=== PATIENT | male | born 1990 | race Caucasian/White ===

== ENCOUNTER 2017-01-06 19:44 | Emergency (ER) | payer SELFPAY ==
[2017-01-06 20:20] VITALS: PULSE 81; RESP 17; TEMP 97.9; O2SAT 97
--- NOTE | 2017-01-06 20:40 | ED PDOC ---
HPI: Dental Pain/Injury Time Seen by Provider: 01/06/17 20:26 Chief Complaint (Nursing): Dental Pain Chief Complaint (Provider): dental pain History Per: Patient History/Exam Limitations: no limitations Onset/Duration Of Symptoms: Days (x3 days) Current Symptoms Are (Timing): Still Present Additional Complaint(s): Mina Wharton is a 26 year old male with previous right-sided wisdom tooth extraction performed 3 weeks ago, [facility] of dental pain along his right jaw line associated with swelling ongoing for 3 days. Denies any fever, headaches, ear pain, nausea, vomiting, recent injury or trauma. Stated he took advil to relieve his symptoms around 12: 00 today. PMD: none provided Past Medical History Reviewed: Historical Data, Nursing Documentation, Vital Signs Vital Signs: Last Vital Signs Temp 97.9 F 01/06/17 20:18 Pulse 81 01/06/17 20:18 Resp 17 01/06/17 20:18 BP 156/102 H 01/06/17 20:18 Pulse Ox 97 01/06/17 20:18 - Medical History PMH: Anxiety, Bipolar Disorder Denies: Diabetes, Hepatitis, HIV, HTN, Chronic Kidney Disease, Seizures, Sexually Transmitted Disease - Surgical History Surgical History: No Surg Hx - Family History Family History: States: Unknown Family Hx - Social History Current smoker - smoking cessation education provided: No Alcohol: None Drugs: Denies - Home Medications Home Medications: Ambulatory Orders Medication Instructions Recorded Amoxicillin [Amoxil 500 mg Cap] 500 mg PO BID #13 cap 01/06/17 Benzocaine 20% [Orajel PM Maximum 1 - 2 gm MM DAILY #1 tube 01/06/17 Strength] Mag&Al/Simet/Diphen/Lido [First 30 ml MM DAILY #3 kit 01/06/17 Magic Mouthwash] - Allergies Allergies/Adverse Reactions: Allergies Allergy/AdvReac Type Severity Reaction Status Date / Time No Known Allergies Allergy Verified 01/06/17 20:20 Review of Systems ROS Statement: Except As Marked, All Systems Reviewed And Found Negative Constitutional: Negative for: Fever ENT: Positive for: Mouth Pain (right sided dental pain), Mouth Swelling (right sided). Negative for: Ear Pain Gastrointestinal: Negative for: Nausea, Vomiting Neurological: Negative for: Headache Physical Exam - Reviewed Nursing Documentation Reviewed: Yes Vital Signs Reviewed: Yes - Physical Exam Appears: Positive for: Well, Non-toxic, No Acute Distress Head Exam: Positive for: ATRAUMATIC, NORMAL INSPECTION, NORMOCEPHALIC Skin: Positive for: Normal Color, Warm, Dry ENT: Positive for: TM Is/Are (withing normal limits), Other (tenderness on right side of mouth. Canker sore most predominant on right posterior aspect of gum and inner buccal mucosa. Infection and dental decay are noted). Negative for: Tonsillar Swelling (tongue and uvula swelling) Neck: Positive for: Normal, Painless ROM, Supple Cardiovascular/Chest: Positive for: Regular Rate, Rhythm Respiratory: Positive for: Normal Breath Sounds. Negative for: Crackles, Rales , Rhonchi, Stridor Lymphatic: Positive for: Normal Exam. Negative for: Adenopathy Neurologic/Psych: Positive for: Alert, Oriented - ECG O2 Sat by Pulse Oximetry: 97 (RA) Pulse Ox Interpretation: Normal Medical Decision Making Medical Decision Making: Initial Impression: Canker sores; Tooth infection Initial Plan: * Amoxicillin 500 mg PO * Ultram 100 mg PO * Magic mouth wash Upon provider reevaluation patient is medically stable, and requires no further treatment in the ED at this time. Patient will be discharged home with Rx for Amoxicillin 500mg. Counseling was provided and all questions were answered regarding diagnosis and need for follow up with dentist. There is agreement to discharge plan. Return if symptoms persist or worsen. Clinical Impression: Canker sore; Tooth infection Scribe Attestation: Documented by Margi Stallworth, acting as a scribe for Imelda Jacobs PA-C. Provider Scribe Attestation: All medical record entries made by the Scribe were at my direction and personally dictated by me. I have reviewed the chart and agree that the record accurately reflects my personal performance of the history, physical exam, medical decision making, and the department course for this patient. I have also personally directed, reviewed, and agree with the discharge instructions and disposition. Disposition - Clinical Impression Clinical Impression: Dental caries, Canker sore - Patient ED Disposition Is Patient to be Admitted: No Doctor Will See Patient In The: Office Counseled Patient/Family Regarding: Diagnosis, Need For Followup, Rx Given - Disposition Disposition: Routine/Home Disposition Time: 20:48 Condition: STABLE Prescriptions: Amoxicillin [Amoxil 500 mg Cap] 500 mg PO BID #13 cap Benzocaine 20% [Orajel PM Maximum Strength] 1 - 2 gm MM DAILY #1 tube Mag&Al/Simet/Diphen/Lido [First Magic Mouthwash] 30 ml MM DAILY #3 kit Instructions: Dental Caries (ED), Canker Sores (ED) Forms: [facility] ED School/Work Excuse
[2017-01-06 21:29] VITALS: BP 142/86
== END 2017-01-06 21:04 | disposition home or self-care (01) ==
LOC: H.ER 19:44
DX: K12.0 Recurrent oral aphthae (principal); K04.7 Periapical abscess without sinus

== ENCOUNTER 2017-12-06 17:55 | Emergency (ER) | payer SELFPAY ==
[2017-12-06 18:19] VITALS: BP 144/80; PULSE 101; RESP 16; TEMP 98; O2SAT 96
[2017-12-06] MEDS ORDERED: Absorbable Gelatin Sponge Size 12-7 ONE (18:43)
--- NOTE | 2017-12-06 18:53 | ED PDOC ---
HPI: Skin/Bite Injury Time Seen by Provider: 12/06/17 18:13 Chief Complaint (Nursing): Upper Extremity Problem/Injury Chief Complaint (Provider): Right thumb, skin injury History Per: Patient History/Exam Limitations: no limitations Onset/Duration Of Symptoms: Mins Current Symptoms Are (Timing): Still Present Quality Of Symptoms: Painful Severity: Mild Pain Scale Rating Of: 2 Additional Complaint(s): 27 yo male with no medical problems presents with laceration of the left thumb. PT cut with knife at work. Pt reports tetanus UTD. Past Medical History Reviewed: Historical Data, Nursing Documentation, Vital Signs Vital Signs: Last Vital Signs Temp 98.0 F 12/06/17 18:15 Pulse 101 H 12/06/17 18:15 Resp 16 12/06/17 18:15 BP 144/80 12/06/17 18:15 Pulse Ox 96 12/06/17 18:15 - Medical History PMH: Anxiety, Bipolar Disorder Denies: Diabetes, Hepatitis, HIV, HTN, Chronic Kidney Disease, Seizures, Sexually Transmitted Disease - Surgical History Surgical History: No Surg Hx - Family History Family History: States: Unknown Family Hx - Living Arrangements Living Arrangements: With Family - Social History Current smoker - smoking cessation education provided: No - Home Medications Home Medications: Ambulatory Orders Medication Instructions Recorded Amoxicillin [Amoxil 500 mg Cap] 500 mg PO BID #13 cap 01/06/17 Benzocaine 20% [Orajel PM Maximum 1 - 2 gm MM DAILY #1 tube 01/06/17 Strength] Mag&Al/Simet/Diphen/Lido [First 30 ml MM DAILY #3 kit 01/06/17 Magic Mouthwash] - Allergies Allergies/Adverse Reactions: Allergies Allergy/AdvReac Type Severity Reaction Status Date / Time No Known Allergies Allergy Verified 01/06/17 20:20 Review of Systems ROS Statement: Except As Marked, All Systems Reviewed And Found Negative Constitutional: Negative for: Fever, Chills Skin: Positive for: Other Physical Exam - Reviewed Nursing Documentation Reviewed: Yes Vital Signs Reviewed: Yes - Physical Exam Appears: Positive for: Well, Non-toxic, No Acute Distress Head Exam: Positive for: ATRAUMATIC, NORMAL INSPECTION, NORMOCEPHALIC Skin: Positive for: Warm. Negative for: Normal Color (Superficial avulsion, left thumb, mild active bleeding ) Eye Exam: Positive for: Normal appearance ENT: Positive for: Normal ENT Inspection Neck: Positive for: Normal, Painless ROM Respiratory: Negative for: Accessory Muscle Use, Respiratory Distress Back: Positive for: Normal Inspection Extremity: Positive for: Normal ROM. Negative for: Deformity, Swelling Neurologic/Psych: Positive for: Alert, Oriented - ECG O2 Sat by Pulse Oximetry: 96 Medical Decision Making Medical Decision Making: Wound irrigated. Gel foam applied. Disposition - Clinical Impression Clinical Impression: Skin avulsion - Patient ED Disposition Is Patient to be Admitted: No Counseled Patient/Family Regarding: Diagnosis, Need For Followup - Disposition Disposition: Routine/Home Disposition Time: 18:53 Condition: STABLE Instructions: Wound Care (DC)
[2017-12-06] MEDS ORDERED: Absorbable Gelatin Sponge Size 100 TP ONE (19:00)
== END 2017-12-06 19:36 | disposition home or self-care (01) ==
LOC: H.ER 17:55
DX: S61.012A Laceration without foreign body of left thumb without damage to nail, initial encounter (principal); W26.0XXA Contact with knife, initial encounter; Y99.0 Civilian activity done for income or pay; F31.9 Bipolar disorder, unspecified; F41.9 Anxiety disorder, unspecified